=== PATIENT | male | born 1970 | race Caucasian/White ===

== ENCOUNTER → 2021-12-19 | Emergency (ER) | payer SELFPAY ==
[~2021-12-19] VITALS: Ht 177.8 cm; Wt 104.3 kg
[~2021-12-19] MED LIST: BUTA-247 PO; BUTA1CAP46 PO; BUTALB/APAP/CAFFEINE 1 EACH TABLET PO STA
--- NOTE | 2021-12-19 20:25 | NUR ---
TO ER BED 19. BIBSELF C/O MIGRAINE, NEEDS MEDICATION FIORICET REFILL. AWAITING MD SHELTON
[2021-12-19 20:56] VITALS: BP 134/95
--- NOTE | 2021-12-19 20:56 | NUR ---
Patient discharged to home in stable condition. Written and verbal after care instructions given. Patient verbalizes understanding of instruction.
== END | disposition home or self-care (01) ==
LOC: ER 20:28
DX: G43.909 Migraine, unspecified, not intractable, without status migrainosus (principal); Z59.00 Homelessness unspecified

== ENCOUNTER 2021-12-24 21:16 | Inpatient (IN) | payer MEDICAID ==
[~2021-12-24] VITALS: Ht 172.7 cm; Wt 103.9 kg
[~2021-12-24 21:16] MED LIST changes: -BUTA1CAP46 PO; -BUTALB/APAP/CAFFEINE 1 EACH TABLET PO STA
--- NOTE | 2021-12-24 21:56 | NUR ---
LEAD FORMER AT PT'S BEDSIDE
[2021-12-24 22:11] LABS: BASOPHILS # (AUTO) 0.1 K/uL (0.0-0.2); BASOPHILS % (AUTO) 1.2 % (0.0-2.0); EOSINOPHILS % (AUTO) 9.6 % (0.0-6.0); HEMATOCRIT 41 % (39-51); HEMOGLOBIN 13.3 g/dL (13.5-17.5); LYMPHOCYTES # (AUTO) 1.7 K/uL (0.8-4.8); LYMPHOCYTES % (AUTO) 27.9 % (20.0-44.0); MEAN CORPUSCULAR HGB CONC 33 g/dl (31.0-36.0); MEAN CORPUSCULAR VOLUME 92 fL (80-96); MONOCYTES # (AUTO) 0.4 K/uL (0.1-1.30); NEUTROPHILS # (AUTO) 3.3 K/uL (1.8-8.9); NEUTROPHILS % (AUTO) 54.3 % (43.0-81.0); PLATELET COUNT (AUTO) 254 K/uL (150-450); WHITE BLOOD COUNT (AUTO) 6.1 K/uL (4.3-11.0)
--- NOTE | 2021-12-24 22:26 | NUR ---
pt has been rambling non sensical strings of words as loud as he can since arriving in dept. pt has been asked to lower his voice to with he becomes belligerent with staff, saying things like, "you dont know anything", "I'm from [place]", "give me morphine" and " i dont want no aspirin". ER MD at bedside to evaluate pt, where it was explained that pt would not be recieving IV narotics, but instead aspirin, as it will help his symptoms. pt appeared furious with the plan of care and went back to mumbing non sensically again. pt has been out of bed several times, more than a half dozen, in order to locate MD and ask for IV pain medication. Each time he refuses to go back to bed, says "nobody is going to touch me" and begins yelling "Owww" repeadtly, again very loudly. Loud enough that other pts have asked for some relief of his continous pollution of the therapuetic milleu. This pattern of yelling, demanding and wandering repeats itself until security arrives and pt is escorted back to his bed, where he moans loudly and shouts curse words. pt has been made aware of his impact on the abiility for other pts the heal and for staff to provide care to the other pts in the dept, to which he responded, "i dont give a fuck"
--- NOTE | 2021-12-24 22:30 | NUR ---
FOLLOWED UP WITH LAB REGARDING RESULTS. SPOKE WITH CLS AND WAS NOTIFIED THAT THE MACHINES ARE ON MAINTENANCE CHECK.
[2021-12-24] MEDS ORDERED: NITROGLYCERIN 0.4 MG/TAB BOTTLE SL ONE (23:00)
--- NOTE | 2021-12-24 23:00 | NUR ---
MOVE SHEET SUBMITTED AND CALLED FOR TELE BED.
--- NOTE | 2021-12-24 23:30 | NUR ---
FOLLOWED UP WITH LAB REGARDING RESULTS
[2021-12-24 23:49] LABS: CARBON DIOXIDE 27 mmol/L (21-32); CHLORIDE 108 mmol/L (98-107); CREATININE 0.9 mg/dL (0.6-1.3); GLUCOSE 112 mg/dL (74-106); POTASSIUM 3.5 mmol/L (3.5-5.1); SODIUM SERUM 144 mmol/L (136-145); UREA NITROGEN, BLOOD 16 mg/dL (7-18)
--- NOTE | 2021-12-24 23:55 | NUR ---
pt remains disruptive and uncooperative. pt refused MD ordered sublingiual nitro tabs. he also refused to have a COVID swab colected, RN explained the importance of collecting the sample so van pt may be appropriately placed withi the hospital, stil pt refuses. RN unable to collect updated vital signs, as pt begins yelling very loudly and takes off the blood pressure cuff. Again the importance of maintaing monitoring the pts vital signs was explained, and yet still pt refuses.
--- NOTE | 2021-12-25 00:06 | NUR ---
TROPONIN RESULT RELAYED BY CLS 1154.
--- NOTE | 2021-12-25 00:18 | NUR ---
DR. [facility] CARDIOLOGY ON THE PHONE WITH ER
[2021-12-25] MEDS ORDERED: ENOXAPARIN SODIUM 100 MG/ML DISP.SYRIN SQ ONE ×2 (00:30→00:33)
--- NOTE | 2021-12-25 00:44 | NUR ---
COVID ANTIGEN SWAB COLLECTED AND SENT TO LAB
[2021-12-25 01:36] LABS: CALCIUM, SERUM 8.4 mg/dL (8.5-10.1)
[2021-12-25] MEDS ORDERED: ACETAMINOPHEN 325 MG TABLET PO PRN (03:00)
[2021-12-25] MEDS: ATORVASTATIN 10 MG TABLET PO SCH ×2 (03:00→22:00)
[2021-12-25] MEDS ORDERED: ONDANSETRON HCL/PF 4 MG/2 ML VIAL IVP PRN (03:00)
[2021-12-25] MEDS ORDERED: MORPHINE SULFATE INJ 2 MG/ML DISP.SYRIN IV PRN (03:00)
[2021-12-25] MEDS ORDERED: MAG HYDROX/AL HYDROX/SIMETH 30 ML UDC PO PRN (03:00)
[2021-12-25] MEDS ORDERED: HYDROMORPHONE INJ 2 MG/ML DISP.SYRIN IV PRN (03:00)
--- NOTE | 2021-12-25 03:40 | NUR ---
REPORT GIVEN TO YOLA CoelloW RN FOR CRAIG
[2021-12-25 04:00] VITALS: BP 120/77
--- NOTE | 2021-12-25 04:09 | NUR ---
pt transported to unit in [facility] with RN at bedside with acls protocol. NAD noted during transport.
--- NOTE | 2021-12-25 04:36 | NUR ---
MS/TELE/RN RECEIVED PATIENT FROM . [facility] ADMITTED FOR R/O ACS. PATIENT WAS SLEEPING, AROUSABLE, COMFORTABLE, NO DISTRESS NOTED, MADE COMFORTABLE IN BED, TELE MONITOR WAS APPLIED, SINUS RHYTHM 60. PATIENT REFUSED TO REMOVE HIS PANTS, HENCE UNABLE TO DO PHYSICAL ASSESSMENT. UNABLE TO DO ADMISSION ASSESSMENT PATIENT WAS NOT ANSWERING TO QUESTIONS. WILL MONITOR FOR SAFETY.
[2021-12-25 05:30] LABS: CHOLESTEROL 222 mg/dL (<200); HDL CHOLESTEROL 53 mg/dL (40-60); LDL 150 mg/dL (0-99); TRIGLYCERIDES 80 mg/dL (30-150)
--- NOTE | 2021-12-25 06:52 | NUR ---
MS/TELE/RN PATIENT IS NOW AWAKE, ALERT AND ORIENTED, HAS BEEN AMBULATING IN THE HALLWAY EARLIER, ALL NEEDS ATTENDED AT THIS TIME, WILL CONTINUE TO MONITOR.
--- NOTE | 2021-12-25 07:32 | NUR ---
FLEET DISPATCH MANAGER OPENING NOTES RECEIVED PATIENT IN BED SLEEPING, AROUSABLE BY NAME TO A/O X 4, TOLERATING WELL ON ROOM AIR WITH NO S/S OF RESPIRATORY DISTRESS AT THIS TIME. BREATHING EVEN AND UNLABORED WITH NO S/S OF PAIN. TELE MONITOR READING SINUS 64. SAFETY MEASURES IN PLACE: BED IN LOWEST LOCKED POSITION, SIDE RAILS UP X 2, CALL LIGHT WITHIN REACH. WILL CONTINUE TO MONITOR.
[2021-12-25] MEDS ORDERED: GABA600T12 PO (07:52)
[2021-12-25] MEDS ORDERED: ASPI-1169 PO (07:52)
[2021-12-25] MEDS ORDERED: ATOR20TA PO (07:52)
[2021-12-25] MEDS ORDERED: CLOP75TA15 PO (07:52)
[2021-12-25 08:07] VITALS: BP 118/72
[2021-12-25] MEDS ORDERED: ASPIRIN 81 MG TAB.CHEW PO SCH (09:00)
--- NOTE | 2021-12-25 10:54 | NUR ---
"SS Consult: SS consult for homelessness. Pt. Is a 54-year-old White male who does not demonstrate adequate insight to the reason for hospitalization. Per EMR, he presented himself to hospital for chest pain. Pt. was oriented x2, alert, and was not cooperative. During interview, pt. was not capable of following directions, did not make appropriate eye-contact, and appeared unkempt. Pt. stated that he lives with his mom but would not confirm address or contact information. Katie White is listed as pt.s contact information, pt. stated that Katie is my aunt. Pt. refused to answer questions and was not cooperative. Plan: SW provided available resources and left it at bedside. Pt. refused to sign homeless waiver, SW placed waiver in chart. Resources Provided: Winter Shelters: SPA 2 | [facility]: [facility] Address: Confidential (call for location ) Population Served: Co[place] # of Beds: 57 SPA 4 | [facility] Provider: Home at Last Address: [address] [address] # of Beds: 49 Population Served: [facility] | [facility] Provider: Home at Last Address: [address] [address] # of Beds: 49 Population Served: [facility] Iftikhar Schmidt [facility] Nursing Home Provider: Nigel Schmidt [facility] Address: [address] [facility] [address] # of Beds: 20 Population Served: Women [facility] Facility Provider: Home at Last Address: [address] [facility] [address] # of Beds: 30 Population Served: Women [facility] 8 | [facility] Library Provider: Lisa Address: [address] [facility] [address] # of Beds: 65 Population Served: [place] Year-round shelters: [place] [address] [address] ; [facility] [place] [address] [place] [address]; [facility] [address] [facility] [address] Winter Shelters: Snoya Ashwini Haddad Provider: [facility] [place] Address: [address], [address] # of Beds: 47 Population Served: [facility] 6 | [facility] Mar[facility] Rosales [place] Provider: Home at Last Address: [address] [place] [address], [address] # of Beds: 66 Population Served: [facility] [place] Provider: First to Serve Address: [address] [facility], [address] # of Beds: 56 Population Served: [facility] [place] Provider: /[facility] Address: [address] [facility], [address] # of Beds: 49 Population Served: [facility] 8 | [place] Provider: First to Serve Address: [address] [facility]. [place], [address] # of Beds: 37 Population Served: [facility] Hygiene: [place] [facility]: [address] [address] [facility] ; [place] [facility] [address] [facility] ; [facility] [address] [facility] . Food Resources: [place] [facility] at [facility]- [address] [facility]. [place]; Meet Each Need with Dignity ([facility]) [address] [facility]; [facility] [address] [facility]; [facility] [address] [facility]. Mental Health resources provided: [facility] [address] , [place] [address] ; [facility] Health [place] [address] [facility] [address], [place] [address] ; [facility] [address] [place] [address] ; [facility] [address] [place] [address] Healthcare Clinics: [facility] [address] [place] [facility], [address] [place]. [place] ; [facility] [address] [facility] [address] [place] [address]; [facility] [address] [place] [address] [phone] Counseling--Outpatient [facility] [address] [facility], [place] [address] (Specializes in in-depth psychotherapy for emotional distress: anxiety, depression, interpersonal conflicts, life transitions, childhood abuse) [facility] [address] [place] [address] (Assist with solving problem marital difficulties, separation & divorce, aging parents, & grief, chronic & terminal illness) [facility] [address] [place] [address] (Deal with loss & grief, anxiety, marital difficulties) Homebound/Mental Health Services [address] [facility], [address] [place] [address] (Provide in-home mental services to people who are incapable of leaving their homes) [facility] for Needs of the Elderly Senior Service/Resource Center [address] [place] [address] [facility] [address] [place] [address] PSYCHIATRIC OUTPATIENT SERVICES [facility] Partial Hospitalization and Intensive Outpatient Program (Managed Care and [place] Only)[address] [facility] [phone] [facility] Partial Hospitalization and Outpatient [id number] [place] [address] [place], [place] [phone] VAN [place] [facility] [id number] [facility]. [address] [place], [place] [phone] [facility] Partial Hospitalization and Outpatient [id number] Lily [place], [phone] Substance Abuse resources provided included: [facility] Substance Abuse Self-Helpline ([facility]) ; CRI -[facility]LP [address] [facility]. [place] [address] ; [facility] [place] [address] [facility] [place] [facility] [address] ; [facility] Rehabilitation Program [address] [facility] [place] [phone] ; [facility] [address] [facility] [phone] ; [facility] [address] [facility] [address] ; [facility] [address] [facility]. [facility] [phone] ; [facility] Substance Abuse Helpline([facility] ; [facility] ; [facility] [place]; [facility] [place]; [facility] [place]; [facility] [place] Pfeiffer; [facility] [place]; [place]; [facility] [address] [place]; [facility]; Alcoholics Anonymous -SFV; Ch-Qxqb-Ehxhumv ; Marijuana Anonymous -SFV; Narcotics Anonymous www.na.org;"
[2021-12-25 12:00] VITALS: BP 122/71
[2021-12-25] MEDS: ENOXAPARIN SODIUM 100 MG/ML DISP.SYRIN SQ SCH (12:28)
--- NOTE | 2021-12-25 14:53 | NUR ---
SPRINKLER TRUCK DRIVER NOTE PATIENT COMPLAINT OF 05/12 UPPER CHEST PAIN AND REQUESTING MEDICATION. V/S TAKEN: BP 122/71, HR 75. 2 MG MORPHINE IVP ADMINISTERED ORDERED. WILL CONTINUE TO MONITOR FOR S/S OF PAIN. Addendum: 12/25/21 at 1525 by JEN GARCIA RN PATIENT CONTINUES TO REFUSE TELE MONITORING
[2021-12-25] MEDS: METOPROLOL TARTRATE 25 MG TABLET PO SCH ×2 (15:08→21:00)
[2021-12-25] MEDS: BUTALB/APAP/CAFFEINE 1 EACH TABLET PO PRN ×2 (15:54→22:43)
--- NOTE | 2021-12-25 15:55 | NUR ---
SEPARATING MACHINE OPERATOR NOTE PATIENT COMPLAINT OF 10/10 HEADACHE AND REQUESTING MEDICATION. FIORICET 50/300/40 MG PO ADMINISTERED ORDERED. WILL CONTINUE TO MONITOR FOR S/S OF HEADACHE.
--- NOTE | 2021-12-25 18:17 | NUR ---
JIG MILL OPERATOR NOTE PATIENT STATED HIS LEFT WRIST HAS DIFFICULTY WITH MOVEMENT THAT HAS BEEN ONGOING FOR 1-2 DAYS, PATIENT HAS NO FACIAL DROOPING, ARM DRIFT, OR FACIAL ASYMMETRY. MD NOTIFIED OF STATUS OF PATIENT WRIST, AWAITING ANY FURTHER ORDERS FROM MD.
--- NOTE | 2021-12-25 18:56 | NUR ---
MANDOLIN REPAIRER CLOSING NOTES PATIENT LAYING IN BED A/O X 4, TOLERATING WELL ON ROOM AIR WITH NO S/S OF RESPIRATORY DISTRESS AT THIS TIME. BREATHING EVEN AND UNLABORED, AND NO S/S OF PAIN OR DISCOMFORT. L FA # 18 G SALINE LOCK CLEAN, INTACT, AND FLUSHING WELL. SAFETY MEASURES IN PLACE: BED IN LOWEST LOCKED POSITION, SIDE RAILS UP X 2, CALL LIGHT WITHIN REACH. PATIENT REFUSES TELE MONITORING AT THIS TIME. WILL ENDORSE TO SERVICE OR WORK DISPATCHER FOR CRAIG.
--- NOTE | 2021-12-25 19:15 | NUR ---
RN opening notes Received Pt from morning nurse. Pt is walking in the nursing station screaming " I want my nurse!!" Pt is not directable. Pt is alert and orientedX4. On room air. No SOB. No S/S of distress noted. IV site at LFA# 18 is clean, intact and SL. Pt refusing tele monitor. Explained risks and benefits. Pt keep refusing. Safety precautions is maintained. Bed at low position, brakes locked, side rails upX2, hob elevated and call light is within reach. Will continue to monitor.
[2021-12-25] MEDS: MORPHINE SULFATE INJ 4 MG/ML DISP.SYRIN IV PRN (19:29)
--- NOTE | 2021-12-25 19:30 | NUR ---
RN notes Pt is complaining of chest pain and generalized pain and requesting morphine. administered morphine 4 mg/iv push/ prn as ordered for pain. safety precautions is maintained. Will continue to monitor.
--- NOTE | 2021-12-25 19:50 | NUR ---
RN notes Pt is screaming and requesting a primary nurse. Primary nurse went to the room. Pt states "When are you gonna give me a kiss!! Informed Pt to respect staffs. Pt states "Are you gonna fuck me up?" Informed and explained to Pt. Pt stated " I want a different nurse!!" Pt is walking to a nursing station demanding a different nurse. Charge nurse is aware and informed.
[2021-12-25 20:03] VITALS: BP 128/82
--- NOTE | 2021-12-25 20:17 | NUR ---
RN notes Pt is in front of the room screaming and yelling " I'm from [place]!! They don't do this to me!! Crying out loud!! Kar Mikel!! Did you hear that!! Fuck that!! Pt is non directable and refusing to go back to the room despites explaination risks and benefits. Pt keep refusing.
--- NOTE | 2021-12-25 20:23 | NUR ---
RN notes Charge nurse and primary nurse at the bedside. Pt is non directable and not answering charge nurse. Pt stated " As a Pt request, I want a different nurse!!
--- NOTE | 2021-12-25 20:29 | NUR ---
RN notes Transferred CRAIG to QUINTEN Rodgers.
--- NOTE | 2021-12-25 20:30 | NUR ---
RN NOTE PATIENT RECEIVED FROM [facility]. PATIENT IS AGITATED. STILL REFUSES TELE MONITOR. I HAD SECURITY WITH ME FOR MY INTERACTION. PATIENT STABLE; WILL CONTINUE TO MONITOR PATIENT.
--- NOTE | 2021-12-25 21:58 | NUR ---
RN NOTE PATIENT CONTINUES TO BE AGGRESSIVE AND OPPOSITIONAL TO ANY REDIRECT. HE MAKES ATTEMPTS TO GO INTO OTHER PATIENTS' ROOMS, STATES HE IS NOT HAPPY HERE BUT DOES NOT WANT TO LEAVE. EVERY ATTEMPT HAS BEEN MADE TO MEET THIS PATIENT'S REQUESTS AND DEMANDS. HE ASKS FOR FOOD, FOOD IS BROUGHT, HE THEN PROCEEDS TO DEMEAN THE STAFF (NURSES, CNAs, ETC.). HE CONTINUES TO REFUSE TELE MONITOR EVEN WHEN ENCOURAGED TO WEAR IT EACH TIME THERE IS AN INTERACTION. HE STATES HE BELIEVES WE ARE REFUSING HIM HELP BY NOT HAVING HIS ATTENDING MD COME SEE HIM AT THIS LATE HOUR OF THE NIGHT. MY FELLOW NURSE, NICK, HAS BEEN WITNESS TO THIS, AND THE CAREER AND GUIDANCE COUNSELOR ASSIGNED, ANDRES, HAS ALSO BEEN WITNESS TO THIS BEHAVIOR. PATIENT IS STABLE; WILL CONTINUE TO MONITOR PATIENT.
[2021-12-26] VITALS (7 sets, daily range): BP systolic 118–140; BP diastolic 71–86
[2021-12-26] MEDS: MORPHINE SULFATE INJ 4 MG/ML DISP.SYRIN IV PRN ×6 (00:07→20:44)
[2021-12-26] MEDS: ENOXAPARIN SODIUM 100 MG/ML DISP.SYRIN SQ SCH ×2 (01:00→13:00)
--- NOTE | 2021-12-26 06:46 | NUR ---
BUSINESS QUALITY ASSURANCE ANALYST CLOSING NOTE PATIENT IS AWAKE IN ROOM. A/OX4. NO S/S OF DISTRESS, BREATHING SYMMETRICAL ON RM AIR. LFA#18 HL INTACT AND PATENT. PATIENT CONTINUES TO REFUSE TELE MONITOR AND MEDICAL CARE WELL BEING DEMEANING AND UNCOOPERATIVE TOWARD ALL STAFF. SAFETY MEASURES IN PLACE. WILL ENDORSE TO NEXT SHIFT FOR CRAIG.
--- NOTE | 2021-12-26 07:21 | NUR ---
BEHAVIORAL TECHNICIAN OPENING NOTES RECEIVED PATIENT IN BED AWAKE AND WATCHING TV. A/O X 4, ABLE TO VERBALIZED NEEDS, NO C/O PAIN OR DISCOMFORTS VOICED AT THIS TIME. ON ROOM AIR, TOLERATING WELL WITH NO S/S OF RESPIRATORY DISTRESS NOTED. PT REFUSED TO HAVE TELE-MONITOR DESPITE EDUCATING OF RISKS AND BENEFITS. IV SL ON RFA G# 18 INTACT AND PATENT. SAFETY MEASURES IN PLACE: BED IN LOWEST LOCKED POSITION, SIDE RAILS UP X 2, CALL LIGHT WITHIN REACH. WILL CONTINUE TO MONITOR.
--- NOTE | 2021-12-26 08:30 | NUR ---
RN NOTES PT C/O ACHING MID UPPER CP, 8/10 SCALE. PRN MORPHINE ADMINISTERED AT 0829. WILL CONTINUE TO MONITOR AND REASSESS PT.
[2021-12-26] MEDS: METOPROLOL TARTRATE 25 MG TABLET PO SCH ×2 (08:31→20:39)
[2021-12-26] MEDS: BUTALB/APAP/CAFFEINE 1 EACH TABLET PO PRN ×2 (10:28→18:42)
--- NOTE | 2021-12-26 10:30 | NUR ---
RN NOTES PT VERBALIZED THAT HE HAS MIGRAINE AND ASKED FOR HIS FIORICET TAB. PRN FIORICET GIVEN AT 1028. WILL CONTINUE TO MONITOR.
[2021-12-26] MEDS: ASPIRIN EC 325 MG TABLET.DR PO SCH (10:32)
--- NOTE | 2021-12-26 12:36 | NUR ---
RN NOTES PT C/O ACHING MID UPPER CP, 8/10 SCALE. PRN MORPHINE ADMINISTERED AT 1233. WILL CONTINUE TO MONITOR AND REASSESS PT.
--- NOTE | 2021-12-26 14:58 | NUR ---
RN NOTES PT STATED THAT HE TAKES GABAPENTIN 600MG TID AT HOME AND REQUESTED FOR IT. DR CABRALES MADE AWARE WITH ORDER TO PUT IN ORDER
[2021-12-26 16:12] LABS: BASOPHILS # (AUTO) 0.1 K/uL (0.0-0.2); BASOPHILS % (AUTO) 1.1 % (0.0-2.0); EOSINOPHILS % (AUTO) 8.7 % (0.0-6.0); HEMATOCRIT 41 % (39-51); HEMOGLOBIN 13.4 g/dL (13.5-17.5); LYMPHOCYTES % (AUTO) 20.9 % (20.0-44.0); MEAN CORPUSCULAR HGB CONC 32 g/dl (31.0-36.0); MEAN CORPUSCULAR VOLUME 92 fL (80-96); MONOCYTES # (AUTO) 0.3 K/uL (0.1-1.30); MONOCYTES % (AUTO) 5.7 % (2.0-12.0); NEUTROPHILS # (AUTO) 3.1 K/uL (1.8-8.9); NEUTROPHILS % (AUTO) 63.6 % (43.0-81.0); PLATELET COUNT (AUTO) 211 K/uL (150-450); RED BLOOD CELL COUNT(AUTO) 4.49 MIL/uL (4.5-6.0); WHITE BLOOD COUNT (AUTO) 4.8 K/uL (4.3-11.0)
[2021-12-26] MEDS: GABAPENTIN 300 MG CAPSULE PO SCH (16:45)
--- NOTE | 2021-12-26 16:50 | NUR ---
RN NOTES PT ASKED FOR HIS PRN MORPHINE IV STATED THAT HE HAD MID UPPER CP, 8/10 SCALE. MORPHINE 4MG IVP ADMINISTERED AT 1646. WILL CONTINUE TO MONITOR AND REASSESS PT.
--- NOTE | 2021-12-26 18:38 | NUR ---
DRUG ABUSE WORKER CLOSING NOTES PT RESTING IN BED WATCHING TV AT THIS TIME. A/O X 4, ABLE TO MAKE NEEDS KNOWN. AMBULATORY WITH STEADY GAIT. ON ROOM AIR, TOLERATING WELL WITH NO SOB NOTED DURING THE DAY. PT STILL REFUSES TELE-MONITOR. IV SL ON RFA G# 18 INTACT, PATENT AND FLUSHES WELL. ALL NEEDS AND CARE ATTENDED WELL. SAFETY MEASURES KEPT IN PLACED: BED IN LOWEST LOCKED POSITION, SIDE RAILS UP X 2, CALL LIGHT WITHIN REACH. WILL ENDORSED CRAIG TO UTILITY DIVISION PROJECT MANAGER NURSE.
[2021-12-26 19:20] LABS: CALCIUM, SERUM 8.5 mg/dL (8.5-10.1); CREATININE 0.7 mg/dL (0.6-1.3); MAGNESIUM 1.8 mg/dL (1.8-2.4); PHOSPHORUS 3.7 mg/dL (2.5-4.9); POTASSIUM 4.1 mmol/L (3.5-5.1)
--- NOTE | 2021-12-26 19:37 | NUR ---
RN NOTES RECEIVED PATIENT IN BED, ALERT AND ORIENTED X4, ROOM AIR, NOT IN APPARENT DISTRESS, NO COMPLAIN OF PAIN AT THIS TIME, WILL CONTINUE TO MONITOR.
[2021-12-26] MEDS: ATORVASTATIN 10 MG TABLET PO SCH (21:08)
[2021-12-27] MEDS: ENOXAPARIN SODIUM 100 MG/ML DISP.SYRIN SQ SCH ×2 (00:11→12:01)
--- NOTE | 2021-12-27 06:33 | NUR ---
RN NOTES ALERT/ORIENTED X4, ROOM AIR, COMPLAINING OF CHEST PAIN, REQUESTED MORPHINE 4 MG IV. VS STABLE, DEMANDING FOOD AND DRINKS CONSTANTLY. PLANNED CARDIAC CATHETERIZATION ON DECEMBER 28, IF PATIENT AGREES.
--- NOTE | 2021-12-27 07:20 | NUR ---
RN NOTES UP IN BED, AWAKE AND VERBALLY RESPONSIVE. CURRENTLY EATING BREAKFAST, NOT IN ACUTE DISTRESS. REFUSED TELE MONITORING, MD AWARE. SAFETY MEASURES IN PLACE. WILL CONTINUE TO MONITOR.
[2021-12-27] MEDS: ASPIRIN EC 325 MG TABLET.DR PO SCH (09:27)
[2021-12-27] MEDS: METOPROLOL TARTRATE 25 MG TABLET PO SCH ×2 (09:27→20:33)
[2021-12-27] MEDS: GABAPENTIN 300 MG CAPSULE PO SCH ×3 (09:27→16:02)
--- NOTE | 2021-12-27 10:18 | NUR ---
RN NOTES PATIENT SLEEPING AT THIS TIME AND ASKS NOT TO BE BOTHERED.
--- NOTE | 2021-12-27 11:55 | NUR ---
RN NOTES PATIENT SEEN BY DR. CABRALES AND MADE AWARE OF PLAN OF CARE; FOR [facility] TOMORROW W/ DR. MENDEZ PER DR. CABRALES.
[2021-12-27] MEDS: MORPHINE SULFATE INJ 4 MG/ML DISP.SYRIN IV PRN ×3 (12:01→20:15)
[2021-12-27] MEDS: BUTALB/APAP/CAFFEINE 1 EACH TABLET PO PRN ×2 (13:49→20:33)
[2021-12-27 16:00] VITALS: BP 135/87
--- NOTE | 2021-12-27 18:51 | NUR ---
RN NOTES CONSENT FOR CARDIAC CATH PROCEDURE SIGNED BY PATIENT; VERBALIZED UNDERSTANDING THAT HE WILL BE NPO EXCEPT MEDS POST MIDNIGHT. CONSENT FORM PLACED IN THE CHART.
[2021-12-27 20:00] VITALS: BP 129/79
--- NOTE | 2021-12-27 20:20 | NUR ---
MEDICAL CODING MANAGER NOTE PATIENT COMPLAINING OF CHEST PAIN, REQUESTED MORPHINE 4 MG IV, MEDICATION GIVEN ORDERED. WILL CONTINUE TO MONITOR PATIENT
--- NOTE | 2021-12-27 20:40 | NUR ---
RN NOTE PATIENT COMPLAINING OF HEADACHE, FIORICET TABLET GIVEN ORDERED. WILL CONTINUE TO MONITOR PATIENT
--- NOTE | 2021-12-27 21:00 | NUR ---
PRODUCT SPECIALIST NOTE LOPRESSOR MEDICATION NOT GIVEN DUE TO HEART RATE OF 53. WILL CONTINUE TO MONITOR PATIENT
[2021-12-27] MEDS: ATORVASTATIN 10 MG TABLET PO SCH (21:52)
--- NOTE | 2021-12-27 22:00 | NUR ---
PEDIATRIC DIETICIAN OPENING NOTE PATIENT AWAKE IN BED WITH BROTHER AT BEDSIDE. PATIENT ALERT/ORIENTED X 4, PT ABLE TO MAKE NEEDS KNOWN. PATIENT REQUESTING FOOD, SANDWICH AND SNACKS GIVEN. REMINDED PATIENT THAT HE WILL BE NPO AFTER MIDNIGHT FOR FORK LIFT MECHANIC TOMORROW, PT VERBALIZED UNDERSTANDING. PATIENT CONTINUES TO REFUSE PLACEMENT OF CLOUD DEVELOPER DESPITE EXPLANATION OF RISKS AND BENEFITS. LEFT FOREARM IV ACCESS INTACT AND FLUSHING WELL, SALINE LOCKED. PATIENT IS AMBULATORY TO BATHROOM. SAFETY MEASURES IN PLACE: CALL LIGHT WITHIN REACH, SIDE RAILS UP X 2, BED LOCKED IN LOWEST POSITION, BED ALARM ON. WILL CONTINUE TO MONITOR PATIENT
[2021-12-28] MEDS: MORPHINE SULFATE INJ 4 MG/ML DISP.SYRIN IV PRN ×2 (00:21→10:20)
--- NOTE | 2021-12-28 00:25 | NUR ---
PRIMARY SCHOOL TEACHER NOTE PATIENT COMPLAINING OF CHEST PAIN 05/12, REQUESTED MORPHINE 4 MG IV, MEDICATION GIVEN ORDERED. WILL CONTINUE TO MONITOR PATIENT
--- NOTE | 2021-12-28 04:33 | NUR ---
RN NOTE PATIENT REFUSED 4 AM VITAL SIGNS DESPITE EXPLANATION OF RISKS AND BENEFITS, STATED HE JUST WANTS TO SLEEP
[2021-12-28 06:40] VITALS: BP 127/62
--- NOTE | 2021-12-28 07:05 | NUR ---
BALL POINT SPLITTER CLOSING NOTE PATIENT SLEEPING IN BED, NO SIGNIFICANT CHANGES THROUGHOUT SHIFT. PT REFUSED AM LAB DRAW, ROUTE CLERK WILL COME BACK LATER TO ATTEMPT AGAIN. PATIENT CONTINUES TO REFUSE PARAPROFESSIONAL AIDE TEACHER. MEDICATIONS GIVEN ORDERED, PT NEEDS MET THROUGHOUT SHIFT. PT NPO SINCE MIDNIGHT FOR STUCCO WORKER PROCEDURE TODAY. SAFETY MEASURES IN PLACE: CALL LIGHT WITHIN REACH, SIDE RAILS UP X 2, BED LOCKED IN LOW POSITION. ENDORSED TO DAY SHIFT NURSE FOR CONTINUITY OF CARE
--- NOTE | 2021-12-28 07:16 | NUR ---
TOW TRUCK OPERATOR OPENING NOTE PT ASLEEP THOUGH EASILY AWAKENED. OPPOSITIONAL AT TIMES. PATIENT ALERT/ORIENTED X 4, PT ABLE TO MAKE NEEDS KNOWN. PATIENT REFUSED PLACEMENT OF ARCADE GAMES MECHANIC DESPITE EXPLANATION OF RISKS AND BENEFITS. LFA IV ACCESS INTACT AND FLUSHING WELL. PATIENT IS AMBULATORY TO BATHROOM. SAFETY MEASURES IN PLACE: CALL LIGHT WITHIN REACH, SIDE RAILS UP X 2, BED LOCKED IN LOWEST POSITION, BED ALARM ON. WILL CONTINUE TO MONITOR PATIENT / ASSIST
[2021-12-28 08:00] VITALS: BP 110/56
[2021-12-28] MEDS: ASPIRIN EC 325 MG TABLET.DR PO SCH (08:44)
[2021-12-28] MEDS: METOPROLOL TARTRATE 25 MG TABLET PO SCH (08:44)
[2021-12-28] MEDS: GABAPENTIN 300 MG CAPSULE PO SCH ×2 (08:44→12:00)
--- NOTE | 2021-12-28 11:23 | NUR ---
SW Note: SS came to see pt. last week but he was not cooperative. SW tried again today, and pt. was alert and oriented x3. SW received consult regarding homelessness. Pt. stated that he is not homeless and lives with brother Jeremy [[address] [place] [address]]. Pt.s brother was at bedside. Pt. rejected additional resources and still refused to sign homeless waiver. Waiver is placed in chart.
[2021-12-28 12:00] VITALS: BP 124/78
[2021-12-28 12:11] LABS: CREATININE 0.7 mg/dL (0.6-1.3); MAGNESIUM 2.1 mg/dL (1.8-2.4); PHOSPHORUS 3.3 mg/dL (2.5-4.9)
[2021-12-28 13:01] LABS: BASOPHILS % (AUTO) 0.7 % (0.0-2.0); EOSINOPHILS % (AUTO) 6.1 % (0.0-6.0); HEMATOCRIT 42 % (39-51); HEMOGLOBIN 13.6 g/dL (13.5-17.5); LYMPHOCYTES # (AUTO) 0.8 K/uL (0.8-4.8); LYMPHOCYTES % (AUTO) 14.7 % (20.0-44.0); MEAN CORPUSCULAR HGB CONC 32 g/dl (31.0-36.0); MEAN CORPUSCULAR VOLUME 92 fL (80-96); MONOCYTES # (AUTO) 0.3 K/uL (0.1-1.30); NEUTROPHILS # (AUTO) 4.2 K/uL (1.8-8.9); NEUTROPHILS % (AUTO) 73.5 % (43.0-81.0); PLATELET COUNT (AUTO) 217 K/uL (150-450); RED BLOOD CELL COUNT(AUTO) 4.59 MIL/uL (4.5-6.0); WHITE BLOOD COUNT (AUTO) 5.7 K/uL (4.3-11.0)
--- NOTE | 2021-12-28 13:19 | NUR ---
RN NOTE- PT WAS NPO FOR RN TRANSITIONAL PROCEDURE BUT OBTAINED FOOD AND ATE. DR MENDEZ CANCELED PROCEDURE. PT MAY SIGN AMA
[2021-12-28] MEDS: BUTALB/APAP/CAFFEINE 1 EACH TABLET PO PRN (13:26)
--- NOTE | 2021-12-28 14:40 | NUR ---
RN NOTE- DR MENDEZ TO UNIT. SAW PT. PT TO BE DC BY SAY CABRALES
[2021-12-28 16:00] VITALS: BP 130/80
--- NOTE | 2021-12-28 16:29 | NUR ---
RN NOTE- PT DC AT THIS TIME W SECURITY AT HIS SIDE. OPPOSITIONAL, PROFANE AND AGGRESSIVE. REFUSING ALL CARE AND ASSISTANCE,. ESCORTED OFF UNIT AND HOSPITAL BY SECURITY
[2021-12-28] MEDS ORDERED: ENOXAPARIN SODIUM 100 MG/ML DISP.SYRIN SQ SCH (21:00)
== END 2021-12-28 16:15 | disposition home or self-care (01) | DRG 190 ==
LOC: ER 21:24 → TELE 12-25 03:02
PROVIDERS: ADMIT Nurse Practitioner Acute Care; ATTEND Nurse Practitioner Acute Care
DX: I21.4 Non-ST elevation (NSTEMI) myocardial infarction (principal); E78.5 Hyperlipidemia, unspecified; I25.110 Atherosclerotic heart disease of native coronary artery with unstable angina pectoris; Z86.73 Personal history of transient ischemic attack (TIA), and cerebral infarction without residual deficits; G43.909 Migraine, unspecified, not intractable, without status migrainosus; Z20.822 Contact with and (suspected) exposure to COVID-19; I25.2 Old myocardial infarction; Z95.5 Presence of coronary angioplasty implant and graft; Z59.00 Homelessness unspecified; Z91.19 Patient's noncompliance with other medical treatment and regimen; Z76.5 Malingerer [conscious simulation]; Z79.82 Long term (current) use of aspirin; Z79.899 Other long term (current) drug therapy; G62.9 Polyneuropathy, unspecified; Z87.891 Personal history of nicotine dependence; I10 Essential (primary) hypertension
CPT/HCPCS: 36415; 71045-TC; 80048-TC; 80061-TC; 83735-TC; 84100-TC; 84484-TC; 85025-TC; 85610-TC; 85730-TC; 87081-TC; G0378; G0480; J1650; J2270